=== PATIENT | male | born 1965 | race Caucasian/White ===

== ENCOUNTER 2019-06-19 08:15 | Outpatient (CLI) | payer BC, SELFPAY ==
--- NOTE | 2019-06-19 08:36 | CT_ITS ---
WS: [id number] CT MYELOGRAM LUMBAR SPINE HISTORY: INTERVERTEBRAL DISC DISORDER W/RADICULOPATHY OF LSPINE TECHNIQUE: Contiguous 2.5 mm axial imaging performed from T12 through the mid sacral level. Bone and soft tissue windows reviewed. Sagittal and coronal reformats are submitted and reviewed. DLP: 2139.61 mGy-cm. All CT scans at [facility] use at least one of these dose optimization techniques: automat ed exposure control; mA and/or kV adjustment per patient size (includes targeted exams where dose is matched to clinical indication); or iterative reconstruction. COMPARISON: MRI lumbar spine 05/04/2018. Very good injection and opacification of the thecal sac. 2 mm retrolisthesis of L2-L4. No fractures a nd the disc spaces are well-maintained. Small endplate hypertrophic osteophytes at all levels. Conus tapers and ends normally near T12-L1. L1-L2: Moderate annular disc bulging. Slight mass effect upon the ventral thecal sac with no stenosis . L2-L3: Mild annular disc bulging and osteophytic ridging. No stenosis. L3-L4: Mild osteophytic ridging and annular disc bulging. Moderate osteophyte extends into the proxim al LEFT foramen with moderate encroachment upon the L3 nerve root. L4-L5: Diffuse annular disc bulging and osteophytic ridging. Disc osteophyte disease is causing a mil d central and subarticular recess stenosis. L5-S1: Mild osteophytic ridging. Small osteophytes extend toward the subarticular recesses and forame n. No significant stenosis or nerve root encroachment. Mild calcified plaque in the distal aorta. Mild bilateral SI joint arthritis. CT/CT lumbar spine w con [id number] IMPRESSION: 1. Mild osteophytic ridging and disc bulging throughout the lumbar spine. 2. Mild central and subarticular recess stenosis at L4-5 due to disc osteophyt e disease. 3. Mild encroachment upon the subarticular recesses and foramen of L5-S1 witho ut significant stenosis. 4. Moderate LEFT foraminal stenosis predominantly due to an osteophyte at L3-4 .
--- NOTE | 2019-06-19 08:36 | IR_ITS ---
WS: [id number] THORACIC AND LUMBAR MYELOGRAMs HISTORY: INTERVERTEBRAL DISC DISORDER W/RADICULOPATHY OF LSPINE and thoracic spine COMPARISON: None available. FLUOROSCOPY TIME: 1.4 minutes. Procedure, risks and complications were explained to the patient. Risks including bleeding, infection , headaches, allergic reaction and seizures. Consent has been obtained. With the patient in prone position the skin over the lumbar region is cleansed with ChloraPrep and an esthetized with lidocaine. 22-gauge spinal needle is inserted into the thecal sac at the appropriate level determined by fluoroscopy. Omnipaque 300; 13 ml is injected slowly under fluoroscopy with no co mplications. Needle bevel is perpendicular to the longitudinal fibers of the dura. Stylet is reinsert ed prior to removal of the needle. Patient tolerated the procedure well. Patient will proceed to CT f or further evaluation. Multilevel osteophytosis throughout the lumbar spine. 2 mm retrolisthesis of L1, L2, L3 and L4. There is mild straightening of the normal lumbar lordosis. With flexion and extension the retrolisthesis d oes not change significantly. Disc spaces are well-maintained. Good contrast distending the thecal sa c. Very slight RIGHT convex curvature of the thoracic spine. IR/IR myelogram spine thorac/lumb IMPRESSION: 1. Uncomplicated thoracic and lumbar myelograms. 2. Multilevel mild lumbar spondylosis. Endplate osteophytes and slight retroli sthesis of L1-L4. 3. No lumbar spine instability. 4. Mild RIGHT convex curvature thoracic spine.
--- NOTE | 2019-06-19 08:36 | CT_ITS ---
WS: [id number] CT THORACIC MYELOGRAM HISTORY: INTERVERTEBRAL DISC DISORDER W/RADICULOPATHY OF LSPINE TECHNIQUE: Contiguous 2.5 mm axial images are reviewed to thoracic spine. Images are reformatted in s agittal and coronal planes. All CT scans at [facility] use at least one of these dose opt imization techniques: automated exposure control; mA and/or kV adjustment per patient size (includes targeted exams where dose is matched to clinical indication); or iterative reconstruction. DLP: 2582.73 mGy-cm. COMPARISON: None available. Mild RIGHT convex curvature thoracic spine. Good distention of the thecal sac with contrast. There is no cord compression. Mild disc space narrowing and small endplate osteophytes throughout the thoraci c spine. Most significant osteophytes are RIGHT lateral margin of the thoracic spine beginning at T6. At C6-7 and C7-T1, small osteophytes from the vertebral bodies with mild encroachment upon the thecal sac. Shallow RIGHT paracentral disc protrusion at T8-9. Shallow central and LEFT paracentral disc protrusi on at T9-10. There is no significant central or foraminal stenosis. Mild facet joint arthropathy caus ing very mild narrowing of the foramen throughout the thoracic spine. No severe stenosis. No fracture s. CT/CT thoracic spine w con [id number] IMPRESSION: 1. No significant central or foraminal stenosis throughout the thoracic spine. 2. Mild RIGHT convex curvature thoracic spine with no significant disc protrus ions or stenosis.
[2019-06-19] MEDS: iohexol 300 mg/mL 50 mL Btl INTRATHECA (10:48)
== END 2019-06-19 08:16 | disposition home or self-care (01) ==
LOC: RAD 08:21
PROVIDERS: Family Provider Family Medicine; PCP Family Medicine; Visit Provider Licensed Practical Nurse
DX: M51.17 Intervertebral disc disorders with radiculopathy, lumbosacral region (principal); M47.896 Other spondylosis, lumbar region; M43.8X4 Other specified deforming dorsopathies, thoracic region; M51.26 Other intervertebral disc displacement, lumbar region; M48.061 Spinal stenosis, lumbar region without neurogenic claudication
CPT/HCPCS: 62305; 72120; 72129; 72132

== ENCOUNTER 2019-08-10 06:00 | Outpatient (RCR) | payer BC, SELFPAY | END 2019-08-22 23:59 | disposition home or self-care (01) | LOC: SPT 06:00 | PROVIDERS: Family Provider Family Medicine; PCP Family Medicine; Referring Provider Specialist; Visit Provider Specialist | DX: M48.061 Spinal stenosis, lumbar region without neurogenic claudication (principal) | CPT/HCPCS: 97750 ==